=== PATIENT | male | born 1975 | race Caucasian/White ===

== ENCOUNTER 2018-11-12 01:01 | Observation (INO) ==
[2018-11-12] MEDS ORDERED: Ketorolac 30 MG/ML VIAL IVP ONE (01:24)
--- NOTE | 2018-11-12 01:27 | Emergency Department Note ---
Disposition Clinical Impression: Ureterolithiasis Hyperglycemia due to type 2 diabetes mellitus Qualifiers: Diabetes mellitus termination clerk insulin use: without termination clerk use Qualified Code(s): E11.65 - Type 2 diabetes mellitus with hyperglycemia Disposition: Admitted As Inpatient Condition: Fair Referrals: Heather Rob CNP [Primary Care Provider] - Forms: ED Satisfaction Letter Time of Disposition: 02:36 Back Pain HPI - General Chief Complaint: ED Back Pain/Injury Stated Complaint: BACK PAIN Time Seen by Provider: 11/12/18 01:10 Source: patient Mode of arrival: private vehicle Limitations: no limitations Nursing Notes Reviewed: Yes Vital Signs Reviewed: Yes - History of Present Illness HPI Narrative: Patient presents to the ED complaining of severe sudden onset right-sided back and flank pain. States he was lying in bed when pain started approximately 30 minutes ago. He describes his pain as sharp and constant and rates it a 7-8 out of 10. It is in the right flank area. No midline or left-sided pain. He also reports some intermittent pain in the right lower quadrant that is also sharp in nature that he rates a 6 out of 10. He denies any recent injury. No history of back problems. Denies any urinary symptoms. No nausea or vomiting, diarrhea or constipation. No chest pain or shortness of breath. No fever or chills. No numbness, tingling or weakness in his arms or his legs. Patient has a history of diabetes, high blood pressure and high cholesterol but is not on any medication currently since he lost his medical card approximately 2 years ago. - Related Data Allergies Allergy/AdvReac Type Severity Reaction Status Date / Time No Known Allergies Allergy Verified 11/12/18 01:04 Constitutional: Denies: fever, chills, weakness, weight change Eyes: Denies: eye pain, eye discharge, vision change ENT ED: Denies: ear pain, throat pain, dental pain, hearing loss, epistaxis, congestion, dysphagia Cardiovascular: Denies: chest pain, palpitations, dyspnea on exertion, edema, syncope Respiratory: Denies: cough, dyspnea, wheezes, hemoptysis, stridor Gastrointestinal: Denies: abdominal pain, nausea, vomiting, diarrhea, cons tipation, hematemesis, melena, hematochezia Genitourinary: Denies: urgency, dysuria, frequency, hematuria Musculoskeletal: Reports: as per HPI, back pain (R lumbar/flank area). Denies: neck pain, arthralgia, myalgia Integumentary: Denies: rash, abrasion, lesions Neurological: Denies: headache, weakness, numbness, paresthesias, confusion, abnormal gait, vertigo Psychiatric: Denies: anxiety, depression, suicidal thoughts, homicidal thoughts, auditory hallucinations, visual hallucinations Endocrine: Denies: fatigue Hematological/Lymphatic: Denies: easy bleeding, easy bruising Allergic/Immunologic: Denies: facial swelling, urticaria Past Medical History - Past Medical History Medical history: Reports: diabetes, hyperlipidemia - Social History Smoking Status: Never smoker Smokeless Tobacco Status: No Alcohol use: Reports: none Drug use: Reports: none Physical Exam - General Limitations: no limitations General appearance: alert, in no apparent distress, other (appears uncomfortable, pacing in room) - Head Head exam: atraumatic, normocephalic, normal inspection - Eye Eye exam: Present: normal appearance, PERRL, EOMI - ENT ENT exam: normal exam, normal oropharynx, mucous membranes moist - Neck Neck exam: Present: normal inspection, full ROM, trachea midline - Chest Chest inspection: Present: normal inspection, symmetric chest wall rise - Respiratory Respiratory exam: Present: normal lung sounds bilaterally - Cardiovascular Cardiovascular exam: Present: regular rate, normal rhythm, normal heart sounds - Abdominal Exam Abdominal exam: Present: soft, tenderness, normal bowel sounds. Absent: distention, guarding, rebound, rigidity Abdominal tenderness: Present: RLQ, mild - Extremities Exam Extremities exam: Present: normal inspection, full ROM. Absent: tenderness, pedal edema - Back Exam Back exam: Present: normal inspection, full ROM, tenderness (R flank area) - Neurological Exam Neurological exam: Present: alert, oriented X3 - Psychiatric Psychiatric exam: Present: normal affect, normal mood - Skin Skin exam: Present: warm, dry, intact, normal color Course Course Narrative: Patient presents to the ED with sudden onset of right-sided back and flank pain without any antecedent injury. He does have some tenderness to palpation in the right flank area and right lower quadrant. On arrival he is hypertensive but afebrile and hemodynamically stable. He is in obvious discomfort and his presentation is concerning for possibility of a kidney stone versus less likely lumbar pathology. Will check labs, urinalysis and CT scan. We will give medication for pain in the meantime. We will monitor blood pressure for any improvement with pain control. - Reevaluation(s) Reevaluation #1: Patient's lab work revealed significant hyperglycemia with a glucose of 621. Sodium is slightly low potassium is normal. Beta hydroxy was normal as well as his pH is no signs of DKA. He was started on IV fluids and given 4 units of insulin IV. Patient states he was on insulin at one point for his diabetes but he cut out a lot of sugar from his diet was able to be weaned off the insulin. At the time he stopped seeing his doctor he was down to just being on metformin. He has not seen anyone for have his sugar checked in over 2 years. Patient has not yet urinated. His CT scan did reveal a 3 mm stone in the right ureter with some hydronephrosis. Kidney function is normal. Pain was completely relieved with a single dose of Toradol. Discussed lab results with the patient regarding his hyperglycemia. He was agreeable to admission for glucose control and to get restarted on medications as needed. Blood pressure has improved to 166/101 with pain control. This will likely still need medication control as well which can be addressed while he is inpatient. I spoke to the hospitalist on-call, Dr. Carranza, who agreed to accept the patient. Time: 02:34 Vital Signs Temperature 98.9 F 11/12/18 01:01 Pulse Rate 91 11/12/18 01:01 Respiratory Rate 18 11/12/18 01:01 Blood Pressure 197/116 11/12/18 01:01 O2 Sat by Pulse Oximetry 99 11/12/18 01:01 Temperature 98.9 F 11/12/18 01:01 Pulse Rate 91 11/12/18 01:01 Respiratory Rate 18 11/12/18 01:01 Blood Pressure 197/116 11/12/18 01:01 O2 Sat by Pulse Oximetry 99 11/12/18 01:01 Oxygen Delivery Oxygen Delivery Room Air Back Pain/Injury - Differential Diagnosis Differential Diagnosis: Likely: renal colic. Unlikely: lumbar radiculopathy, strain of lumbar region - Medical Records Medical records reviewed: Yes I reviewed the patient's medical records. - Lab Data Lab results reviewed: Yes I reviewed the patient's lab results. Result diagrams: 11/12/18 01:28 11/12/18 01:28 Lab Results 11/12/18 11/12/1819 Range/Units 01:28 01:28 01:28 WBC 10.7 (4.3-11.1) K/mcL RBC 5.96 H (4.19-5.50) M/mcL Hgb 18.2 H (12.9-16.9) g/dL Hct 49.0 (37.5-50.1) % MCV 82.2 L (83.0-100.0) fL MCH 30.5 (28.0-33.3) pg MCHC 37.1 H (31.6-35.5) g/dL RDW 11.9 (11.5-14.5) % Plt Count 226 (140-400) K/mcL MPV 11.2 (9.4-12.4) fL Immature Gran % 0.4 (0-4) % Seg Neutrophils % 64.4 % Lymphocytes % 28.3 % Monocytes % 4.8 % Eosinophils % 1.2 % Basophils % 0.9 % Neutrophils # 6.9 (1.6-8.9) K/mcL Lymphocytes # 3.0 (0.6-4.6) K/mcL Monocytes # 0.5 (0.0-1.3) K/mcL Eosinophils # 0.1 (0.0-0.6) K/mcL Basophils # 0.1 (0.0-0.2) K/mcL VBG pH (7.32-7.42) pH Units VBG pCO2 (41-51) mmHg VBG pO2 (25-50) mmHg VBG HCO3 (21-27) mEq/L Sodium 128 L (136-145) mEq/L Potassium 4.7 (3.5-5.1) mEq/L Chloride 93 L (98-107) mEq/L Carbon Dioxide 25 (23-29) mEq/L BUN 19 (6-20) mg/dL Creatinine 1.25 (0.70-1.30) mg/dL Est GFR ( Amer) > 60 (> 60) Est GFR (Non-Af Amer) > 60 (> 60) BUN/Creatinine Ratio 15 (6-26) Glucose 621 H* (70-105) mg/dL Calculated Osmolality 297 (280-300) Calcium 9.1 (8.6-10.3) mg/dL Beta-Hydroxybutyric Acd 0.20 (0.02-0.27) mmol/L 11/12/18 Range/Units 02:15 WBC (4.3-11.1) K/mcL RBC (4.19-5.50) M/mcL Hgb (12.9-16.9) g/dL Hct (37.5-50.1) % MCV (83.0-100.0) fL MCH (28.0-33.3) pg MCHC (31.6-35.5) g/dL RDW (11.5-14.5) % Plt Count (140-400) K/mcL MPV (9.4-12.4) fL Immature Gran % (0-4) % Seg Neutrophils % % Lymphocytes % % Monocytes % % Eosinophils % % Basophils % % Neutrophils # (1.6-8.9) K/mcL Lymphocytes # (0.6-4.6) K/mcL Monocytes # (0.0-1.3) K/mcL Eosinophils # (0.0-0.6) K/mcL Basophils # (0.0-0.2) K/mcL VBG pH 7.41 (7.32-7.42) pH Units VBG pCO2 40 L (41-51) mmHg VBG pO2 66 H (25-50) mmHg VBG HCO3 25 (21-27) mEq/L Sodium (136-145) mEq/L Potassium (3.5-5.1) mEq/L Chloride (98-107) mEq/L Carbon Dioxide (23-29) mEq/L BUN (6-20) mg/dL Creatinine (0.70-1.30) mg/dL Est GFR ( Amer) (> 60) Est GFR (Non-Af Amer) (> 60) BUN/Creatinine Ratio (6-26) Glucose (70-105) mg/dL Calculated Osmolality (280-300) Calcium (8.6-10.3) mg/dL Beta-Hydroxybutyric Acd (0.02-0.27) mmol/L - Radiology Data Radiology results reviewed: Yes I reviewed the patient's radiology results. ITS Impressions Abdomen/Pelvis CT 11/12/18 01:24 IMPRESSION: There is a 3 mm stone within the proximal right ureter with mild right-sided hydronephrosis. There is an additional 1.3 cm stone within the inferior pole right kidney. A small cyst containing a calcification is seen within the inferior pole left kidney which is incompletely characterized on this study due to its small size. Consider follow-up or comparison outside CT studies to document stability. D/ / Jada Kahn MD / Jada Kahn MD Interpreting Provider: Jada Kahn MD
[2018-11-12 01:51] LABS: Basophils # 0.1 K/mcL (0.0-0.2); Basophils % 0.9 %; Eosinophils # 0.1 K/mcL (0.0-0.6); Eosinophils % 1.2 %; Hemoglobin 18.2 g/dL (12.9-16.9); Immature Granulocytes % 0.4 % (0-4); Lymphocytes % 28.3 %; Mean Corpuscular Hemoglobin 30.5 pg (28.0-33.3); Mean Corpuscular Volume 82.2 fL (83.0-100.0); Mean Platelet Volume 11.2 fL (9.4-12.4); Monocytes # 0.5 K/mcL (0.0-1.3); Monocytes % 4.8 %; Neutrophils # 6.9 K/mcL (1.6-8.9); Platelet Count 226 K/mcL (140-400); Red Blood Count 5.96 M/mcL (4.19-5.50); Red Cell Distribution Width 11.9 % (11.5-14.5); Segmented Neutrophils % 64.4 %; White Blood Count 10.7 K/mcL (4.3-11.1)
[2018-11-12 01:54] LABS: BUN/Creatinine Ratio 15 (6-26); Blood Urea Nitrogen 19 mg/dL (6-20); Calcium 9.1 mg/dL (8.6-10.3); Carbon Dioxide 25 mEq/L (23-29); Chloride 93 mEq/L (98-107); Glucose 621 mg/dL (70-105); Mean Corpuscular HGB Conc 37.1 g/dL (31.6-35.5); Osmolality,Calculated 297 (280-300); Potassium 4.7 mEq/L (3.5-5.1); Sodium 128 mEq/L (136-145); eGFR For African Americans > 60 (> 60); eGFR For Non-African Americans > 60 (> 60)
[2018-11-12] MEDS ORDERED: Insulin Regular, Human 100 UNIT/ML IV ONE (01:56)
[2018-11-12] MEDS ORDERED: 0.9 % Sodium Chloride 1,000 ML IVC ONE (01:56)
[2018-11-12 02:18] LABS: VBG HCO3 25 mEq/L (21-27); VBG PCO2 40 mmHg (41-51); VBG PH 7.41 pH Units (7.32-7.42); VBG PO2 66 mmHg (25-50)
[2018-11-12] MEDS ORDERED: Naloxone 0.4 MG/ML INJ IVP PRN (02:36)
[2018-11-12] MEDS ORDERED: Acetaminophen 325 MG TABLET PO PRN (02:36)
[2018-11-12] MEDS ORDERED: Ketorolac 30 MG/ML VIAL IVP PRN (02:36)
[2018-11-12] MEDS ORDERED: traMADol 50 MG TABLET PO PRN (02:36)
[2018-11-12] MEDS ORDERED: *HR* Dextrose 50 % in Water (Syg) 50 ML SYRINGE IVP PRN (02:39)
[2018-11-12] MEDS ORDERED: D5% in Water 1,000 ML IVC PRN (02:39)
[2018-11-12] MEDS ORDERED: Dextrose Gel 15 GM/37.5 ML TUBE PO PRN ×2 (02:39)
[2018-11-12 02:58] LABS: Bilirubin,Urine Negative (Negative); Blood,Urine Small (Negative); Clarity,Urine Clear (Clear); Color,Urine Yellow (Yellow); Glucose,Urine (UA) 500 mg/dL (Normal); Ketones,Urine Negative (Negative); Leukocyte Esterase,Urine Negative (Negative); Nitrite,Urine Negative (Negative); PH,Urine 6.5 pH Units (5.0-8.0); Protein,Urine Negative (Neg-Trace); Urobilinogen,Urine Normal (Normal)
[2018-11-12] MEDS ORDERED: *HR* OxyCODONE Oral Soln 5 MG/5 ML UD.LIQ PO PRN (02:58)
[2018-11-12 03:04] LABS: Squamous Epithelial Cell,Urine Few per lpf (None-Few); WBC,Urine 0-3 per hpf (0-3)
[2018-11-12] MEDS: 0.9 % Sodium Chloride 1,000 ML IVC SCH ×3 (03:06→21:50)
[2018-11-12] MEDS: *HR* OxyCODONE Immed Rel 5 MG TABLET PO PRN ×3 (03:15→17:00)
[2018-11-12] MEDS: Insulin LISPRO 300 UNITS/3 ML VIAL SQ SCH ×3 (06:31→16:59)
--- NOTE | 2018-11-12 15:09 | Internal Med History&Physical ---
Date of Encounter: 11/12/18 Time of Encounter: 14:35 Assessment and Plan (1) Ureterolithiasis Current visit: Yes Status: Acute IV fluids have been ordered. Analgesics will be given as needed. Urine will be strained. (2) Hypertension Current visit: Yes Status: Acute Blood pressure has been significantly elevated since admission. He will be started on lisinopril and metoprolol. Qualifiers: Hypertension type: unspecified Qualified Code(s): I10 - Essential (primary) hypertension (3) Elevated hemoglobin Current visit: Yes Status: Acute Hemoglobin was elevated at 17.2 on 04/24/2014. Recheck labs in a.m. (4) Microcytosis Current visit: Yes Status: Acute New since 04/24/2014 when MCV was 89.6. Iron studies will be ordered. (5) Hyperglycemia due to type 2 diabetes mellitus Current visit: Yes Status: Acute Check hemoglobin A1c. Metformin will be started. Accu-Cheks with SSI have been ordered. Qualifiers: Diabetes mellitus continuous churn buttermaker insulin use: without [facility] use Qualified Code(s): E11.65 - Type 2 diabetes mellitus with hyperglycemia (6) Low vitamin D level Current visit: Yes Status: Acute Vitamin D level was 7 on 04/24/2014. This will be rechecked. Internal Medicine - H&P: HPI Chief complaint: Right flank pain Admitted From: Emergency Dept Plans for Post Hospital Care: Home History of present illness: Mr. Kemp is a 43 year old male who came to emergency room after being awakened approximately 30 minutes earlier with right sided flank pain. He reports the pain radiated around his side into his lower midline abdominal area. When it did not resolve after several minutes he came to emergency room. CT scan showed 3 mm stone in the proximal right ureter with mild hydronephrosis. [facility] care needs. He denies previous kidney stones. He denies other kidney bladder prostate disorders. Past Med Surg Social Fam HX - Past Medical History Medical history: diabetes, hyperlipidemia - Past Surgical History Additional surgical history: LEFT KNEE SURGERY - Social History Smoking Status: Never smoker Smokeless Tobacco Status: No Alcohol use: none Drug use: none Internal Medicine - H&P: Meds Allergy/AdvReac Type Severity Reaction Status Date / Time No Known Allergies Allergy Verified 11/12/18 01:04 All Systems PM: A 10-system review of systems was performed and is negative for pertinent findings except as documented above in the HPI. Review of systems: Gen.: He states his weight has been stable for several months Cardiovascular: He denies hypertension NV heart failure angina DVT or pulmonary embolus Respiratory: He smoked from age [age] up to 3 packs per day. He denies chronic lung disease and does not use home oxygen GI: He denies disorders of his liver gallbladder or exocrine pancreas : As per history of present illness Neurologic: He denies large distribution strokes or seizures. Endocrine: He was diagnosed with DM 2 approximately 2003. He states he has not been to his PCP in approximately 2 years. He does not check blood sugars at home and does not take medication. Hematology/oncology: He denies blood disorders cancers or anemia Psychiatric: He denies anxiety depression or other mental health issues [place] skeletal: He denies arthritis gout or other bone joint or muscle disorders - Constitutional Vitals: Temp Pulse Resp BP Pulse Ox 98.5 F 94 20 195/123 95 11/12/18 14:18 11/12/18 14:18 11/12/18 14:18 11/12/18 14:18 11/12/18 14:18 Exam: Gen.: He is a well-developed well-nourished male lying in bed who appears in no acute distress at present time HEENT: Head is atraumatic and normocephalic. Eyes: EOMI. There is no scleral icterus. Mouth: Mucosa is moist. Neck: Supple and nontender. There is no thyromegaly or adenopathy noted. Heart: Regular without murmurs gallops or ectopics Lungs: No wheezes or crackles are heard. Abdomen: Soft and nontender. No masses or guarding are noted. Extremities: There is no cyanosis edema or clubbing noted. Dorsalis pedis and posterior tibial pulses are 1-2 over 2 bilaterally. Neurologic: Mental status: He is talkative and a good historian. Cranial nerves: Smile is symmetric. Forehead wrinkles bilaterally. Tongue protrudes midline. EOMI. Motor: There is no pronator drift. Cerebellar: Finger to nose is intact bilaterally. Skin: Warm and dry Internal Med - H&P Results - Labs CBC & Chem 7: 11/12/18 01:28 11/12/18 05:15 Labs: Short CBC 11/12/18 Range/Units 01:28 WBC 10.7 (4.3-11.1) K/mcL Hgb 18.2 H (12.9-16.9) g/dL Hct 49.0 (37.5-50.1) % Plt Count 226 (140-400) K/mcL Neutrophils # 6.9 (1.6-8.9) K/mcL BMP 11/12/18 11/12/18 01:28 05:15 Sodium 128 L Potassium 4.7 Chloride 93 L Carbon Dioxide 25 BUN 19 Creatinine 1.25 Glucose 621 H* 556 H* Calcium 9.1 Urine 11/12/18 Range/Units 02:52 Urine Color Yellow (Yellow) Urine Clarity Clear (Clear) Urine pH 6.5 (5.0-8.0) pH Units Ur Specific [place] 1.010 (1.010-1.025) Urine Protein Negative (Neg-Trace) mg/dL Urine Glucose (UA) 500 H (Normal) mg/dL - ABG Interpretation ABG results: 11/12/18 02:15 VBG pH 7.41 VBG pCO2 40 L VBG pO2 66 H VBG HCO3 25 - Impressions ITS Impressions Abdomen/Pelvis CT 11/12/18 01:24 IMPRESSION: There is a 3 mm stone within the proximal right ureter with mild right-sided hydronephrosis. There is an additional 1.3 cm stone within the inferior pole right kidney. A small cyst containing a calcification is seen within the inferior pole left kidney which is incompletely characterized on this study due to its small size. Consider follow-up or comparison outside CT studies to document stability. D/ / Jada Kahn MD / Jada Kahn MD Interpreting Provider: Jada Kahn MD - VTE Reasons for not Prescribing Prophylaxis: Treatment not Indicated - Low risk for VTE
[2018-11-12] MEDS: *HR* Metformin 500 MG TABLET PO SCH (17:01)
[2018-11-12] MEDS ORDERED: Insulin LISPRO 300 UNITS/3 ML VIAL SQ SCH (21:00)
[2018-11-12 21:30] LABS: % Iron Saturation 41 % (20-55); Iron 118 mcg/dL (65-175); Transferrin 207 mg/dL (203-362)
[2018-11-12 21:48] LABS: Ferritin 369 ng/mL (20-250)
[2018-11-12 21:57] LABS: Estimated Average Glucose 223 mg/dl
[2018-11-12] MEDS ORDERED: Ondansetron 4 MG/2 ML VIAL IVP PRN (23:54)
[2018-11-13] MEDS: 0.9 % Sodium Chloride 1,000 ML IVC SCH (06:01)
[2018-11-13 06:43] LABS: Basophils # 0.1 K/mcL (0.0-0.2); Basophils % 0.5 %; Eosinophils # 0.1 K/mcL (0.0-0.6); Eosinophils % 1.1 %; Hematocrit 45.4 % (37.5-50.1); Hemoglobin 16.4 g/dL (12.9-16.9); Immature Granulocytes % 0.2 % (0-4); Lymphocytes # 2.1 K/mcL (0.6-4.6); Lymphocytes % 16.9 %; Mean Corpuscular HGB Conc 36.1 g/dL (31.6-35.5); Mean Corpuscular Hemoglobin 30.7 pg (28.0-33.3); Mean Platelet Volume 10.6 fL (9.4-12.4); Monocytes # 0.7 K/mcL (0.0-1.3); Monocytes % 5.8 %; Neutrophils # 9.4 K/mcL (1.6-8.9); Platelet Count 195 K/mcL (140-400); Red Blood Count 5.34 M/mcL (4.19-5.50); Red Cell Distribution Width 12.3 % (11.5-14.5); Segmented Neutrophils % 75.5 %; White Blood Count 12.5 K/mcL (4.3-11.1)
[2018-11-13 07:02] LABS: BUN/Creatinine Ratio 13 (6-26); Blood Urea Nitrogen 19 mg/dL (6-20); Calcium 8.3 mg/dL (8.6-10.3); Carbon Dioxide 28 mEq/L (23-29); Chloride 100 mEq/L (98-107); Glucose 219 mg/dL (70-105); Osmolality,Calculated 285 (280-300); Potassium 4.5 mEq/L (3.5-5.1); Sodium 133 mEq/L (136-145); eGFR For African Americans > 60 (> 60); eGFR For Non-African Americans 55 (> 60)
[2018-11-13 07:15] VITALS: BP 125/78
[2018-11-13] MEDS: Insulin LISPRO 300 UNITS/3 ML VIAL SQ SCH (09:10)
[2018-11-13] MEDS: *HR* Metformin 500 MG TABLET PO SCH (09:12)
--- NOTE | 2018-11-13 10:15 | Discharge Summary ---
Date of Encounter: 11/13/18 Time of Encounter: 10:07 - Discharge Diagnosis (1) Ureterolithiasis Priority: Primary Status: Acute (2) Hypertension Priority: Secondary Status: Acute Qualifiers: Hypertension type: unspecified Qualified Code(s): I10 - Essential (primary) hypertension (3) Elevated hemoglobin Priority: Secondary Status: Resolved (4) Microcytosis Priority: Secondary Status: Resolved (5) Hyperglycemia due to type 2 diabetes mellitus Priority: Secondary Status: Acute Qualifiers: Diabetes mellitus mcfp insulin use: without mcfp use Qualified Code(s): E11.65 - Type 2 diabetes mellitus with hyperglycemia (6) Low vitamin D level Priority: Secondary Status: Chronic Hospital course: Mr. Kemp is a 43 year old male who came to emergency room after being awakened approximately 30 minutes earlier with right sided flank pain. He reports the pain radiated around his side into his lower midline abdominal area. When it did not resolve after several minutes he came to emergency room. CT scan showed 3 mm stone in the proximal right ureter with mild hydronephrosis. He was admitted to [facility] for ongoing care needs. Initial orders were written by the emergency room physician. I saw him on November 12 and performed a history and physical. IV fluids and analgesics were ordered. Urine was strained and he passed a stone the morning of November 13. The stone was sent for analysis. His PCP can follow up on the result. He was started on lisinopril and metoprolol for blood pressure. His creatinine khadijah to 1.41 so lisinopril will not be continued. He will be prescribed Toprol- XL at discharge. His PCP can monitor blood pressure and adjust medication as needed. Follow-up labs on November 13 showed hemoglobin normalized to 16.4 and MCV normalized 85.0. On November 13 he felt stable for discharge home. He will follow with his PCP Heather Rob CNP within 1 week. - Time Spent with Patient Total time spent providing and/or coordinating discharge services: - Discharge Medications Prescriptions: New metFORMIN [Glucophage] 500 mg PO BIDWM #60 tablet Metoprolol XL (24 HR) Succ [Toprol XL] 50 mg PO DAILY #30 tab.er.24h Cholecalciferol (D-3) [Vitamin D] 1,000 unit PO DAILY #30 tablet Home Medications: Cholecalciferol (D-3) [Vitamin D] 1,000 unit PO DAILY #30 tablet 11/13/18 [Rx] Metoprolol XL (24 HR) Succ [Toprol XL] 50 mg PO DAILY #30 tab.er.24h 11/13/18 [Rx] metFORMIN [Glucophage] 500 mg PO BIDWM #60 tablet 11/13/18 [Rx] Allergies/Adverse Reactions: Allergy/AdvReac Type Severity Reaction Status Date / Time No Known Allergies Allergy Verified 11/12/18 01:04 Date of admission: 11/12/18 02:42 Primary care physician: Heather Rob - Constitutional Vitals: Temp Pulse Resp BP Pulse Ox 98.7 F 88 20 125/78 93 11/13/18 07:06 11/13/18 07:06 11/13/18 07:06 11/13/18 07:06 11/13/18 07:06 - Patient Status Disposition: Home, Self-Care Condition: Fair - Discharge Instructions Follow Up With: Heather Rob, ADVERTISER [Primary Care Provider] - 1 week - Diet and Activity Activity: resume usual activities as tolerated Diet: diabetic diet - VTE Reasons for not Prescribing Prophylaxis: Treatment not Indicated - Low risk for VTE
[2018-11-18 08:53] LABS: Calculi Mass 26 mg
== END 2018-11-13 11:05 | disposition home or self-care (01) ==
LOC: INPPIK 01:01 → EMEROOPIK 01:01 → INPPIK 02:55
PROVIDERS: ADMIT Internal Medicine; ATTEND Internal Medicine